=== PATIENT | female | born 1990 | race Caucasian/White ===

== ENCOUNTER 2016-08-29 15:30 | Emergency (ER) | payer OTHER ==
[~2016-08-29] VITALS: Ht 162.6 cm; Wt 83.6 kg
[~2016-08-29 15:30] MED LIST: ACETAMINOPHEN500 MG PO; FLEXERIL10 MG PO; HYDROCODON-ACE1 EAC7 PO; IBUPROFEN800 MG PO; LOMOTIL TABLET1 EACH PO; MACROBID100 MG PO; MOTRIN600 MG PO; NAPROXEN500 MG PO; NOHOMEMEDS; NORCO 5/3251 TABLET PO; PRENATAL TABLE1 EAC3 PO; ZOFRAN4 MG PO
[2016-08-29 16:23] LABS: HEMATOCRIT 34.6 % (36.0-46.0); MCH 25.3 PG (29.0-34.0); MCHC 32.7 G/DL (30.0-36.0); MCV 77.6 FL (83-99); MEAN PLAT.VOLUME 10.4 uM^3 (9.5-12.4); PLATELET COUNT 442 K/uL (156-360); RBC DIS.WIDTH-CV 15.2 % (11.8-14.6); RBC DIS.WIDTH-SD 41.6 % (39-53); RED BLOOD COUNT 4.46 M/uL (3.80-5.20); WHITE BLOOD COUNT 10.5 K/uL (4.1-10.2)
[2016-08-29 16:34] LABS: CHLORIDE 107 mEq/L (99-109); POTASSIUM 3.7 mEq/L (3.7-5.4); SODIUM 137 mEq/L (136-147)
[2016-08-29 16:37] LABS: GLUCOSE 138 mg/dL (70-99)
[2016-08-29 16:38] LABS: ANION GAP 6 MEQ/L (2-14)
[2016-08-29 16:39] LABS: TOTAL BILIRUBIN 0.2 mg/dL (0.0-1.0)
[2016-08-29 16:40] LABS: ALKALINE PHOSPHATASE 87 IU/L (3-129); GFR ESTIMATE (CALCULATED) > 59 mL/min/
[2016-08-29 16:42] LABS: UREA NITROGEN (BUN) 10 mg/dL (9-23)
[2016-08-29 16:44] LABS: LIPASE 50 U/L (1.0-51.0)
[2016-08-29 16:51] LABS: QUANTITATIVE HCG 43.1 MIU/ML
[2016-08-29 17:17] LABS: ADD MIUA? YES; BILIRUBIN NEGATIVE; BLOOD SMALL; COLOR YELLOW ((YELLOW)); GLUCOSE (STRIP) 100; KETONES NEGATIVE; LEUKOCYTES LARGE; NITRITE NEGATIVE; PH, URINE 5.5 (5-8); PROTEIN (STRIP) TRACE; SPECIFIC GRAVITY 1.029 (1.000-1.030); UROBILINOGEN 0.2 MG/DL (0.2-1.0)
[2016-08-29 17:35] LABS: BACTERIA 2+ /HPF; CASTS NONE SEEN /LPF; CRYSTALS NONE SEEN; EPITHELIAL CELLS 2+ /HPF; MUCUS NONE SEEN /LPF; UCUL ADDED? YES
[2016-08-29 20:08] VITALS: BP 125/72
== END 2016-08-29 20:10 | disposition home or self-care (01) ==
LOC: EME 15:30
DX: O99.89 Other specified diseases and conditions complicating pregnancy, childbirth and the puerperium (principal); R10.32 Left lower quadrant pain; Z3A.00 Weeks of gestation of pregnancy not specified; Z88.6 Allergy status to analgesic agent
CPT/HCPCS: 76801; 80053; 81003; 83690; 84702; 85027; 87086; 99281; 99284

== ENCOUNTER 2016-11-28 10:13 | Emergency (ER) | payer OTHER ==
[~2016-11-28] VITALS: Ht 162.6 cm; Wt 85.1 kg
[2016-11-28 12:10] LABS: HEMATOCRIT 30.9 % (36.0-46.0); MCH 25.2 PG (29.0-34.0); MCHC 31.7 G/DL (30.0-36.0); MCV 79.4 FL (83-99); MEAN PLAT.VOLUME 10.4 uM^3 (9.5-12.4); PLATELET COUNT 319 K/uL (156-360); RBC DIS.WIDTH-CV 15.2 % (11.8-14.6); RBC DIS.WIDTH-SD 43.5 % (39-53); RED BLOOD COUNT 3.89 M/uL (3.80-5.20); WHITE BLOOD COUNT 8.4 K/uL (4.1-10.2)
[2016-11-28 12:19] LABS: CHLORIDE 105 mEq/L (99-109); POTASSIUM 3.7 mEq/L (3.7-5.4); SODIUM 136 mEq/L (136-147)
[2016-11-28 12:21] LABS: GLUCOSE 132 mg/dL (70-99)
[2016-11-28 12:22] LABS: ANION GAP 10 MEQ/L (2-14)
[2016-11-28 12:25] LABS: GFR ESTIMATE (CALCULATED) > 59 mL/min/
[2016-11-28 12:26] LABS: UREA NITROGEN (BUN) 7 mg/dL (9-23)
[2016-11-28 13:48] LABS: ADD MIUA? YES; BILIRUBIN NEGATIVE; BLOOD NEGATIVE; COLOR YELLOW ((YELLOW)); GLUCOSE (STRIP) NEGATIVE; KETONES 20; LEUKOCYTES TRACE; NITRITE NEGATIVE; PROTEIN (STRIP) NEGATIVE; SPECIFIC GRAVITY 1.016 (1.000-1.030); UROBILINOGEN 0.2 MG/DL (0.2-1.0)
[2016-11-28 13:50] LABS: BACTERIA RARE /HPF; EPITHELIAL CELLS 1+ /HPF; MUCUS TRACE /LPF; RED BLOOD CELLS 0-5 /HPF (0-5); WHITE BLOOD CELLS 0-5 /HPF (0-5)
[2016-11-28] MEDS ORDERED: ANTIVERT25 MG PO (15:40)
[2016-11-28 15:59] VITALS: BP 121/59
== END 2016-11-28 16:00 | disposition home or self-care (01) ==
LOC: EME 10:13
PROVIDERS: Physician Assistant
DX: O20.0 Threatened abortion (principal); O26.891 Other specified pregnancy related conditions, first trimester; R42 Dizziness and giddiness
CPT/HCPCS: 80048; 81003; 85027; 99281; 99285; J7030